=== PATIENT | male | born 1995 | race African-American/Black ===

== ENCOUNTER 2017-03-10 12:41 | Emergency (ER) | payer SELFPAY ==
[2017-03-10 12:48] VITALS: BP 120/65; PULSE 102; TEMP 97.4; BMI 23.4
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
[2017-03-10] MEDS ORDERED: IBUPROFEN 600 MG TABLET (FP) PO ONE ×2 (13:27→13:36)
[2017-03-10] MEDS ORDERED: DIPHTH,PERTUSS(ACELL),TET 0.5 ML DISP.SYRIN IM ONE (13:27)
== END 2017-03-10 13:59 | disposition home or self-care (01) ==
LOC: JERFT 12:41
PROC: 3E0234Z Introduction of Serum, Toxoid and Vaccine into Muscle, Percutaneous Approach (ICD-10-PCS; principal; 2017-03-10)
DX: S00.83XA Contusion of other part of head, initial encounter (principal); S50.01XA Contusion of right elbow, initial encounter; S30.1XXA Contusion of abdominal wall, initial encounter; Y04.2XXA Assault by strike against or bumped into by another person, initial encounter; Y93.89 Activity, other specified; Y92.038 Other place in apartment as the place of occurrence of the external cause; Y07.410 Brother, perpetrator of maltreatment and neglect
CPT/HCPCS: 90715; 99281-25

== ENCOUNTER 2017-12-31 16:19 | Emergency (ER) | payer OTHER ==
[2017-12-31 16:34] VITALS: BMI 19.2
--- NOTE | 2017-12-31 16:34 | PDOC ---
Rapid Medical Evaluation Time Seen by Provider: 12/31/17 16:28 Medical Evaluation: Allergies Allergy/AdvReac Type Severity Reaction Status Date / Time No Known Allergies Allergy Verified 03/10/17 12:43 12/31/17 16:28 Patient had a brief in-person assessment of this patient The patient presents with a chief complaint of: nausea and vomiting x 1/2 hour. Reports dizziness and feeling a little anxious. Admits to alcohol consumption last night Pertinent physical findings are: NAD clear lungs bilaterally soft non tender abdomen I have ordered the following: iv access, antiemetic This patient will proceed to the ED for further evaluation.
[2017-12-31] MEDS ORDERED: ONDANSETRON 4 MG/2 ML VIAL IVPUSH ONE (16:35)
[2017-12-31 17:01] LABS: BASO % 0.2 % (0-2.0); EOS % 0.6 % (0-4.5); HEMATOCRIT 46.2 % (35.4-49); HEMOGLOBIN 15.8 GM/dL (11.7-16.9); LYMPH % 8.7 % (8-40); MCH 32.8 pg (25.7-33.7); MCHC 34.3 g/dl (32.0-35.9); MEAN CELL VOLUME 95.7 fl (80-96); MEAN PLT VOLUME 8.1 fl (7.5-11.1); MONO % 6.3 % (3.8-10.2); NEUT % 84.2 % (42.8-82.8); PLATELET COUNT 259 K/MM3 (134-434); RBC 4.82 M/mm3 (4.00-5.60); RDW 12.2 % (11.9-15.9)
[2017-12-31] MEDS ORDERED: ACETAMINOPHEN 500 MG TABLET (FP) PO ONE (17:32)
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
[2017-12-31] MEDS ORDERED: ONDANSETRON 4 MG/2 ML VIAL ONE (17:35)
[2017-12-31 17:40] LABS: ALBUMIN 4.5 g/dl (3.4-5.0); ANION GAP 11 MMOL/L (8-16); BLOOD UREA NITROGEN 14 mg/dL (7-18); CALCIUM 9.2 mg/dL (8.5-10.1); CHLORIDE 106 mmol/L (98-107); CO2 27 mmol/L (21-32); CREATININE 0.9 mg/dL (0.55-1.3); GLUCOSE,RANDOM 92 mg/dL (74-106); POTASSIUM 4.5 mmol/L (3.5-5.1); SGOT/AST 23 U/L (15-37); SGPT/ALT 41 U/L (13-61); SODIUM 144 mmol/L (136-145)
[2017-12-31 17:42] LABS: ALK PHOS 67 U/L (45-117); BILIRUBIN,TOTAL 0.5 mg/dL (0.2-1); TOT PROT 7.6 g/dl (6.4-8.2)
[2017-12-31] MEDS ORDERED: LACTATED RINGERS SOLUTION 1,000 ML/1,000 ML INFUS.BAG IV SCH (17:45)
[2017-12-31] MEDS ORDERED: ACETAMINOPHEN 325 MG TABLET (FP) ONE (17:56)
[2017-12-31 19:28] VITALS: BP 128/76; PULSE 89; TEMP 98.5
== END 2017-12-31 19:28 | disposition home or self-care (01) ==
LOC: JER 16:19
PROC: 3E033GC Introduction of Other Therapeutic Substance into Peripheral Vein, Percutaneous Approach (ICD-10-PCS; principal; 2017-12-31)
DX: R11.2 Nausea with vomiting, unspecified (principal); R51 Headache
CPT/HCPCS: 36415; 80053; 85025; 96374; 99283-25

== ENCOUNTER 2018-01-17 17:42 | Emergency (ER) | payer OTHER ==
[2018-01-17 18:19] VITALS: BP 123/82; PULSE 111; TEMP 98.6; BMI 19.2
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
[2018-01-17] MEDS ORDERED: KETOROLAC TROMETHAMINE 30 MG/1 ML VIAL IM ONE (19:46)
[2018-01-17] MEDS ORDERED: DIPHTH,PERTUSS(ACELL),TET 0.5 ML DISP.SYRIN IM ONE (19:46)
[2018-01-17] MEDS ORDERED: KETOROLAC TROMETHAMINE 30 MG/1 ML VIAL ONE (19:49)
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
== END 2018-01-17 19:55 | disposition home or self-care (01) ==
LOC: JERFT 17:42
PROC: 3E0234Z Introduction of Serum, Toxoid and Vaccine into Muscle, Percutaneous Approach (ICD-10-PCS; principal; 2018-01-17)
PROC: 3E0233Z Introduction of Anti-inflammatory into Muscle, Percutaneous Approach (ICD-10-PCS; 2018-01-17)
DX: S40.211A Abrasion of right shoulder, initial encounter (principal); S40.811A Abrasion of right upper arm, initial encounter; Y04.2XXA Assault by strike against or bumped into by another person, initial encounter; Y93.89 Activity, other specified; Y92.89 Other specified places as the place of occurrence of the external cause; Y99.8 Other external cause status
CPT/HCPCS: 90715; 99281-25

== ENCOUNTER 2018-11-10 15:16 | Emergency (ER) | payer OTHER | END 2018-11-10 16:01 | disposition home or self-care (01) | LOC: JERFT 15:16 ==

== ENCOUNTER 2020-12-21 10:46 | Emergency (ER) | payer OTHER ==
[2020-12-21 10:52] VITALS: BP 121/78; PULSE 89; TEMP 98.6; BMI 22.1
[2020-12-21] MEDS ORDERED: IBUPROFEN 600 MG TABLET (FP) PO ONE ×2 (12:12→12:13)
== END 2020-12-21 12:30 | disposition home or self-care (01) ==
LOC: JER 10:46
DX: J02.9 Acute pharyngitis, unspecified (principal); Z11.52 Encounter for screening for COVID-19
CPT/HCPCS: 87880; 99283-25; C9803; U0003; U0005